=== PATIENT | female | born 1970 | race Caucasian/White ===

== ENCOUNTER 2022-12-22 13:22 | Emergency (ER) | payer OTHER ==
[~2022-12-22] VITALS: Ht 162.6 cm; Wt 85.9 kg
[2022-12-22] MEDS ORDERED: SINGULAIR PO (13:55)
[2022-12-22] MEDS ORDERED: LEXAPRO20 M1 PO (13:55)
[2022-12-22] MEDS ORDERED: PRILOSEC 20MG20 MG PO (13:56)
[2022-12-22] MEDS ORDERED: ONDANSETRON HYDR4 MG PO (13:56)
[2022-12-22 15:09] LABS: BASO # 0.02 K/mm3 (0.02-0.10); EOS # 0.05 K/mm3 (0.04-0.40); EOS % 0.5 % (1.0-5.0); HEMATOCRIT 31.6 % (37.0-47.0); HEMOGLOBIN 10.7 g/dL (12.5-16.0); LYMPH# 1.12 K/mm3 (1.50-4.00); MEAN CELL VOLUME 83 fl (78-100); MEAN CORPUSCULAR HEMOGLOBIN 28 pg (27-31); MEAN CORPUSCULAR HGB CONC 34 g/dL (33-37); MEAN PLATELET VOLUME 11.1 fl (7.4-10.4); MONO # 0.83 K/mm3 (0.20-0.80); NEU # 7.47 K/mm3 (1.40-6.50); PLATELET COUNT 118 K/mm3 (130-400); RED BLOOD COUNT 3.79 M/mm3 (4.10-5.30); RED CELL DISTRIBUTION WIDTH 14.4 % (11.5-14.5)
[2022-12-22 15:14] LABS: ALBUMIN 2.7 g/dL (3.5-5.0); CALCIUM 8.6 mg/dL (8.3-10.5); TOTAL BILIRUBIN 3.3 mg/dL (0.2-1.2); TOTAL PROTEIN 5.9 g/dL (6.4-8.3)
[2022-12-22 15:16] LABS: TROPONIN-I 0.174 ng/mL (<0.030)
[2022-12-22 15:44] LABS: URINE APPEARANCE HAZY; URINE COLOR YELLOW
[2022-12-22 15:45] LABS: URINE BILIRUBIN NEGATIVE (NEGATIVE); URINE BLOOD 250 ery/uL (NEGATIVE); URINE GLUCOSE NEGATIVE (NEGATIVE); URINE KETONE NEGATIVE (NEGATIVE); URINE LEUKOCYTE ESTERASE 2+ (NEGATIVE); URINE NITRATE POSITIVE (NEGATIVE); URINE PROTEIN(semi-quant) 2+ (NEGATIVE); URINE UROBILINOGEN NORMAL (NORMAL); URINE WBC >50 /hpf (0-3)
[2022-12-22 19:20] VITALS: BP 114/82
== END 2022-12-22 19:10 | disposition short-term general hospital (02) ==
LOC: ED 13:22
PROVIDERS: Physician Assistant
DX: R18.8 Other ascites (principal); R16.1 Splenomegaly, not elsewhere classified; J90 Pleural effusion, not elsewhere classified; E87.6 Hypokalemia; N13.30 Unspecified hydronephrosis; N12 Tubulo-interstitial nephritis, not specified as acute or chronic; R17 Unspecified jaundice; Z28.310 Unvaccinated for COVID-19
CPT/HCPCS: J0696; J7030; Q9967